=== PATIENT | female | born 1985 | race Two or more races ===

== ENCOUNTER 2018-05-14 13:07 | Emergency (ER) | payer SELFPAY ==
[~2018-05-14] VITALS: Ht 157.5 cm; Wt 54.5 kg
[2018-05-14 15:07] VITALS: BP 97/64
[2018-05-14 16:06] LABS: INFLUENZA TYPE A NEGATIVE FOR TYPE A (NEGATIVE); INFLUENZA TYPE B NEGATIVE FOR TYPE B (NEGATIVE)
== END 2018-05-14 16:09 | disposition home or self-care (01) ==
LOC: EMS 13:08
DX: J06.9 Acute upper respiratory infection, unspecified (principal); J32.9 Chronic sinusitis, unspecified
CPT/HCPCS: 87430; 87804

== ENCOUNTER → 2018-08-12 | Outpatient (CLI) | payer OTHER | END | disposition home or self-care (01) | LOC: LABMN 12:48 | PROVIDERS: ATTEND Internal Medicine | DX: Z76.89 Persons encountering health services in other specified circumstances (principal) | CPT/HCPCS: 84460; 86706; 86803; 87340 ==

== ENCOUNTER → 2018-09-23 | Outpatient (CLI) | payer OTHER | END | disposition home or self-care (01) | LOC: LABPV 08:34 | PROVIDERS: ATTEND Internal Medicine | DX: Z76.89 Persons encountering health services in other specified circumstances (principal) | CPT/HCPCS: 84450; 86038; 86850 ==

== ENCOUNTER 2019-02-06 15:53 | Emergency (ER) | payer OTHER ==
[~2019-02-06] VITALS: Ht 152.4 cm; Wt 42.7 kg
[2019-02-06 17:21] LABS: BASOPHILS % (AUTO) 0.6 % (0.0-2.0); EOSINOPHILS % (AUTO) 0.9 % (1.0-6.0); HEMATOCRIT 32.8 % (36-46); HEMOGLOBIN 10.9 g/dL (12.0-16.0); LYMPHOCYTES # (AUTO) 1.5 K/uL (1.0-4.8); LYMPHOCYTES % (AUTO) 27.9 % (22.0-44.0); MEAN CORPUSCULAR HEMOGLOBIN 31.6 pg (26.0-34.0); MEAN CORPUSCULAR HGB CONC 33.2 G/dL (31.0-37.0); MEAN CORPUSCULAR VOLUME 95 fL (80-100); MONOCYTES # (AUTO) 0.3 K/uL (0.1-1.0); MONOCYTES % (AUTO) 5.7 % (2.0-9.0); NEUTROPHILS # (AUTO) 3.5 K/uL (1.8-7.7); NEUTROPHILS % (AUTO) 64.9 % (40.0-70.0); PLATELET COUNT (AUTO) 275 K/uL (150-450); RED BLOOD CELL COUNT(AUTO) 3.44 MIL/uL (4.00-5.20)
[2019-02-06 17:32] LABS: ANION GAP 16 mmol/L (8-16); CALCIUM, TOTAL 9.2 mg/dL (8.8-10.5); CARBON DIOXIDE 24 mmol/L (22-29); CHLORIDE 104 mmol/L (98-107); CREATININE 0.64 mg/dL (0.60-1.30); GLOMERULAR FILTR. RATE CALC > 60 mL/min (>60); GLUCOSE,RANDOM 86 mg/dL (70-110); POTASSIUM 3.5 mmol/L (3.5-5.1); SODIUM SERUM 144 mmol/L (136-145); UREA NITROGEN, BLOOD 6 mg/dL (7-18)
[2019-02-06 18:01] VITALS: BP 110/80
[2019-02-06 19:35] LABS: ERYTHROCYTE SEDIMENTATION RATE 32 MM/HR (0-20)
[2019-02-07 08:41] LABS: HIV 1-2 SCREEN 4TH GEN W/RFLX Non Reactive (Non Reactive)
== END 2019-02-06 18:04 | disposition home or self-care (01) ==
LOC: EMS 15:53
DX: B00.9 Herpesviral infection, unspecified (principal)
CPT/HCPCS: 85651; 86694; 86706; 86803; 87255; 87340; 87389

== ENCOUNTER 2019-02-27 23:28 | Emergency (ER) | payer OTHER ==
[~2019-02-27] VITALS: Ht 152.4 cm; Wt 42.7 kg
[2019-02-27 23:36] VITALS: BP 96/63
== END 2019-02-28 01:14 | disposition home or self-care (01) ==
LOC: EMS 23:30
DX: S60.812A Abrasion of left wrist, initial encounter (principal); W50.4XXA Accidental scratch by another person, initial encounter; Y93.F9 Activity, other caregiving; Y92.89 Other specified places as the place of occurrence of the external cause; Y99.8 Other external cause status